=== PATIENT | male | born 1950 | race Caucasian/White ===

== ENCOUNTER 2022-04-18 09:59 | Emergency (ER) | payer MEDICARE, MEDICAID ==
[~2022-04-18] VITALS: Ht 175.3 cm; Wt 66.2 kg
[~2022-04-18 09:59] MED LIST: ASPIRIN CHEWABL81 MG PO; ATORVASTATIN CA10 MG PO; CATAPRES0.2 MG PO; LISINOPRIL10 MG PO; LOPRESSOR 550 MG/TAB PO; RESTORIL15 MG PO; TERAZOSIN2 MG PO; XANAX0.5 MG PO; catapres PO
[2022-04-18 10:13] VITALS: BP 117/65
[2022-04-18 10:15] VITALS: BP 119/76
[2022-04-18 10:30] VITALS: BP 110/63
[2022-04-18] MEDS ORDERED: CLINDAMYCIN HY300 MG PO (10:31)
[2022-04-18 10:43] VITALS: BP 110/63
== END 2022-04-18 10:40 | disposition home or self-care (01) ==
LOC: ED 09:59
DX: K08.89 Other specified disorders of teeth and supporting structures (principal); I10 Essential (primary) hypertension

== ENCOUNTER 2024-10-12 18:00 | Inpatient (IN) | payer MEDICARE ==
[~2024-10-12] VITALS: Ht 175.3 cm; Wt 62.8 kg
[2024-10-12] VITALS (19 sets, daily range): BP systolic 136–239; BP diastolic 73–131
[~2024-10-12 18:00] MED LIST changes: +CLINDAMYCIN HY300 MG PO
[2024-10-12 19:09] LABS: BASO% 0.5 % (0-3); EOS% 0.4 % (0-8); HEMATOCRIT 34.8 % (39.0-50.0); HEMOGLOBIN 11.7 g/dl (14.0-18.0); IMMATURE GRANULOCYTES 0.3 % (0.0-5.0); LYMPH% 6.3 % (15-41); MEAN CELL VOLUME 95.9 fL CALC (80.0-100.0); MEAN CORPUSCULAR HGB 32.2 pG CALC (26.0-32.0); MEAN CORPUSCULAR HGB CONC 33.6 g/dL CAL (32.0-36.0); MONO% 5.8 % (2-13); NEUT# 11.44 thou/uL (1.82-7.42); NEUT% 86.7 % (42-76); RED BLOOD COUNT 3.63 mill/uL (4.70-6.10)
[2024-10-12] MEDS ORDERED: SODIUM CHLORIDE 0.9% 1,000 ML IV ONE ×3 (19:15→21:55)
[2024-10-12] MEDS ORDERED: hydrALAZINE HCL 20 MG/ML VIAL(1 ML) IV ONE (19:15)
[2024-10-12 19:20] LABS: ALBUMIN 4.3 g/dL (3.2-5.0); BILIRUBIN, TOTAL 0.8 mg/dL (0.2-1.3); TOTAL PROTEIN 7.2 g/dL (6.3-8.2)
[2024-10-12 20:21] LABS: URINE BILIRUBIN - DIPSTICK Negative (NEGATIVE); URINE BLOOD DIPSTICK Trace-intact (NEGATIVE); URINE GLUCOSE - DIPSTICK Negative (NEGATIVE); URINE KETONE Negative (NEGATIVE); URINE NITRITE - DIPSTICK Negative (Negative); URINE PH 5.5 (4.5-8.0); URINE PROTEIN - DIPSTICK 30 mg/dL (NEG-TRACE); URINE SPECIFIC GRAVITY <=1.005; URINE UROBILINOGEN - DIPSTICK 0.2 E.U./dL (0.2)
[2024-10-12 20:23] LABS: URINE COLOR Light yellow; URINE LEUK ESTERASE Large (NEGATIVE)
[2024-10-12] MEDS ORDERED: diazePAM 10 MG/2 ML VIAL IV ONE ×2 (20:25→20:55)
[2024-10-12 20:27] LABS: URINE RBC 0-2 RBC/hpf (0-5)
[2024-10-12 20:28] LABS: URINE SQUAMOUS EPITHELIAL CELL FEW EPI/hpf (0-FEW)
[2024-10-12] MEDS ORDERED: MAGNESIUM HYDROXIDE 30 ML UDC PO PRN (21:55)
[2024-10-12] MEDS ORDERED: hydrALAZINE HCL 20 MG/ML VIAL(1 ML) IV PRN (21:55)
[2024-10-12] MEDS ORDERED: cefTRIAXone SODIUM 2 GM in SODIUM CHLORIDE 0.9% 100 ML IV ONE (21:55)
[2024-10-12] MEDS ORDERED: AZITHROMYCIN 500 MG in SODIUM CHLORIDE 0.9% 500 ML IV ONE (21:55)
[2024-10-12] MEDS ORDERED: SODIUM CHLORIDE 0.9% 1,000 ML IV PRN (21:55)
[2024-10-12] MEDS ORDERED: ACETAMINOPHEN 325 MG/TAB PO PRN (21:55)
[2024-10-12] MEDS ORDERED: MIDAZOLAM HCL 2 MG/2 ML VIAL IV PRN (21:55)
[2024-10-12] MEDS ORDERED: METOPROLOL TARTRATE 50 MG/TAB PO SCH (21:57)
[2024-10-12] MEDS ORDERED: LISINOPRIL 10 MG/TAB PO SCH (21:57)
[2024-10-12] MEDS ORDERED: Heparin SODIUM (Porcine) 5,000 UNITS/ML SDV SC SCH (22:00)
[2024-10-12] MEDS ORDERED: IPRATROPIUM-Albuterol 0.5MG-2.5MG/3 ML NEB PRN (22:00)
[2024-10-12] MEDS ORDERED: cloNIDine HCL 0.1 MG/TAB PO ONE (22:20)
[2024-10-12] MEDS ORDERED: LABETALOL HCL 20 MG/ 4 ML CARTRG IV ONE (22:40)
[2024-10-13] VITALS (7 sets, daily range): BP systolic 140–204; BP diastolic 71–97
[2024-10-13 05:41] LABS: BASO% 0.4 % (0-3); EOS% 0.4 % (0-8); HEMATOCRIT 34.8 % (39.0-50.0); IMMATURE GRANULOCYTES 0.2 % (0.0-5.0); LYMPH% 10.6 % (15-41); MEAN CELL VOLUME 96.4 fL CALC (80.0-100.0); MEAN CORPUSCULAR HGB 33.2 pG CALC (26.0-32.0); MEAN CORPUSCULAR HGB CONC 34.5 g/dL CAL (32.0-36.0); MONO% 8.4 % (2-13); NEUT# 10.23 thou/uL (1.82-7.42); RED BLOOD COUNT 3.61 mill/uL (4.70-6.10)
[2024-10-13 05:50] LABS: ALBUMIN 3.8 g/dL (3.2-5.0); BILIRUBIN, TOTAL 0.8 mg/dL (0.2-1.3); CREATININE 4.6 mg/dL (0.7-1.3); MAGNESIUM 1.8 mg/dL (1.6-2.3); POTASSIUM 4.6 mmol/l (3.5-5.1); TOTAL PROTEIN 6.7 g/dL (6.3-8.2)
[2024-10-13] MEDS ORDERED: LABETALOL HCL 20 MG/ 4 ML CARTRG IV PRN (07:30)
[2024-10-13] MEDS ORDERED: LOPRESSOR50 M1 PO (10:09)
[2024-10-13] MEDS ORDERED: ZESTRIL40 MG PO (10:10)
[2024-10-13] MEDS ORDERED: ATORVASTATIN CA10 MG PO (10:11)
[2024-10-13] MEDS ORDERED: TERAZOSIN5 MG PO (10:11)
[2024-10-13] MEDS ORDERED: MELOXICAM7.5 MG PO (10:12)
[2024-10-13] MEDS ORDERED: GABAPENTIN300 M3 PO (10:13)
[2024-10-13] MEDS ORDERED: amLODIPine BESYLATE 5 MG/TAB PO SCH (11:00)
[2024-10-13] MEDS ORDERED: QUEtiapine FUMERATE 25 MG/TAB PO SCH (11:00)
[2024-10-13] MEDS ORDERED: AZITHROMYCIN 500 MG in SODIUM CHLORIDE 0.9% 250 ML IV SCH (23:00)
[2024-10-14 02:14] VITALS: BP 168/82
[2024-10-14 05:56] VITALS: BP 151/88
[2024-10-14 07:11] VITALS: BP 133/69
[2024-10-14 09:03] LABS: ALBUMIN 3.8 g/dL (3.2-5.0); BILIRUBIN, TOTAL 0.9 mg/dL (0.2-1.3); MAGNESIUM 1.6 mg/dL (1.6-2.3); POTASSIUM 3.9 mmol/l (3.5-5.1); TOTAL PROTEIN 6.7 g/dL (6.3-8.2)
[2024-10-14 09:42] LABS: BASO% 0.4 % (0-3); EOS% 0.8 % (0-8); HEMATOCRIT 36.8 % (39.0-50.0); HEMOGLOBIN 12.4 g/dl (14.0-18.0); IMMATURE GRANULOCYTES 0.2 % (0.0-5.0); LYMPH% 13.6 % (15-41); MEAN CELL VOLUME 97.1 fL CALC (80.0-100.0); MEAN CORPUSCULAR HGB 32.7 pG CALC (26.0-32.0); MEAN CORPUSCULAR HGB CONC 33.7 g/dL CAL (32.0-36.0); MONO% 9.1 % (2-13); NEUT# 10.42 thou/uL (1.82-7.42); NEUT% 75.9 % (42-76); RED BLOOD COUNT 3.79 mill/uL (4.70-6.10)
[2024-10-14 09:58] LABS: CREATININE 3.3 mg/dL (0.7-1.3)
[2024-10-14 18:37] VITALS: BP 149/92
[2024-10-15 01:25] VITALS: BP 144/97
[2024-10-15 04:50] VITALS: BP 147/74
[2024-10-15 07:01] LABS: HEMATOCRIT 33.8 % (39.0-50.0); HEMOGLOBIN 11.3 g/dl (14.0-18.0); MEAN CORPUSCULAR HGB 32.8 pG CALC (26.0-32.0); MEAN CORPUSCULAR HGB CONC 33.4 g/dL CAL (32.0-36.0); RED BLOOD COUNT 3.45 mill/uL (4.70-6.10); RED CELL DISTRI WIDTH 13.1 % (11.5-15.5)
[2024-10-15 07:13] VITALS: BP 138/77
[2024-10-15 07:15] LABS: ALBUMIN 3.5 g/dL (3.2-5.0); BILIRUBIN, TOTAL 0.9 mg/dL (0.2-1.3); CREATININE 2.8 mg/dL (0.7-1.3); POTASSIUM 3.6 mmol/l (3.5-5.1); TOTAL PROTEIN 6.4 g/dL (6.3-8.2)
[2024-10-15] MEDS ORDERED: DOXYCYCLINE HYCLATE 100 MG in SODIUM CHLORIDE 0.9% 100 ML IV SCH (16:00)
[2024-10-15 16:16] VITALS: BP 175/84
[2024-10-15 19:55] VITALS: BP 139/70
[2024-10-15] MEDS ORDERED: QUEtiapine FUMERATE 25 MG/TAB PO SCH (21:00)
[2024-10-16 03:45] VITALS: BP 147/75
[2024-10-16 05:43] LABS: HEMATOCRIT 34.8 % (39.0-50.0); HEMOGLOBIN 11.7 g/dl (14.0-18.0); MEAN CORPUSCULAR HGB CONC 33.6 g/dL CAL (32.0-36.0); RED BLOOD COUNT 3.55 mill/uL (4.70-6.10); RED CELL DISTRI WIDTH 12.9 % (11.5-15.5)
[2024-10-16 05:50] LABS: ALBUMIN 3.6 g/dL (3.2-5.0); CREATININE 2.4 mg/dL (0.7-1.3); POTASSIUM 4.2 mmol/l (3.5-5.1); TOTAL PROTEIN 6.7 g/dL (6.3-8.2)
[2024-10-16 05:56] LABS: BILIRUBIN, TOTAL 0.5 mg/dL (0.2-1.3)
[2024-10-16] MEDS ORDERED: TAMSULOSIN HCL 0.4 MG CAP PO SCH (09:00)
[2024-10-16] MEDS ORDERED: QUEtiapine FUMERATE 25 MG/TAB PO SCH (10:00)
[2024-10-16 10:45] VITALS: BP 134/80
[2024-10-16] MEDS ORDERED: MIDAZOLAM HCL 2 MG/2 ML VIAL IV PRN (14:10)
[2024-10-16 15:53] VITALS: BP 135/75
[2024-10-16 19:00] VITALS: BP 139/73
[2024-10-16] MEDS ORDERED: QUEtiapine FUMERATE 100 MG/TAB PO SCH (21:00)
[2024-10-16 21:41] VITALS: BP 192/70
[2024-10-16 23:10] VITALS: BP 117/61
[2024-10-17 05:50] VITALS: BP 92/62
[2024-10-17 14:26] LABS: BASO% 0.5 % (0-3); EOS% 4.5 % (0-8); HEMATOCRIT 32.9 % (39.0-50.0); IMMATURE GRANULOCYTES 0.1 % (0.0-5.0); LYMPH% 15.1 % (15-41); MEAN CELL VOLUME 97.3 fL CALC (80.0-100.0); MEAN CORPUSCULAR HGB 32.5 pG CALC (26.0-32.0); MEAN CORPUSCULAR HGB CONC 33.4 g/dL CAL (32.0-36.0); MONO% 7.4 % (2-13); NEUT# 7.23 thou/uL (1.82-7.42); NEUT% 72.4 % (42-76); RED BLOOD COUNT 3.38 mill/uL (4.70-6.10); RED CELL DISTRI WIDTH 12.8 % (11.5-15.5)
[2024-10-17 14:36] LABS: ALBUMIN 3.1 g/dL (3.2-5.0); BILIRUBIN, TOTAL 0.6 mg/dL (0.2-1.3); CREATININE 1.9 mg/dL (0.7-1.3); MAGNESIUM 1.5 mg/dL (1.6-2.3); POTASSIUM 3.8 mmol/l (3.5-5.1); TOTAL PROTEIN 5.8 g/dL (6.3-8.2)
[2024-10-17 15:33] VITALS: BP 128/69
[2024-10-17 18:40] VITALS: BP 164/52
[2024-10-17 21:09] VITALS: BP 107/65
[2024-10-18 04:06] VITALS: BP 163/67
[2024-10-18 07:01] VITALS: BP 186/75
[2024-10-18] MEDS ORDERED: LORazepam 0.5 MG/TAB PO PRN (14:35)
[2024-10-18] MEDS ORDERED: MIDAZOLAM HCL 2 MG/2 ML VIAL IV PRN (15:15)
[2024-10-18 17:14] VITALS: BP 154/70
[2024-10-18 19:35] VITALS: BP 160/74
[2024-10-19 04:50] VITALS: BP 179/81
[2024-10-19 06:03] LABS: ALBUMIN 3.7 g/dL (3.2-5.0); BILIRUBIN, TOTAL 0.7 mg/dL (0.2-1.3); MAGNESIUM 1.6 mg/dL (1.6-2.3); TOTAL PROTEIN 6.7 g/dL (6.3-8.2)
[2024-10-19 06:08] VITALS: BP 168/75
[2024-10-19 06:11] LABS: POTASSIUM 4.7 mmol/l (3.5-5.1)
[2024-10-19 06:24] LABS: BASO% 0.4 % (0-3); EOS% 3.6 % (0-8); HEMATOCRIT 33.3 % (39.0-50.0); HEMOGLOBIN 11.1 g/dl (14.0-18.0); IMMATURE GRANULOCYTES 0.2 % (0.0-5.0); LYMPH% 14.6 % (15-41); MEAN CELL VOLUME 97.1 fL CALC (80.0-100.0); MEAN CORPUSCULAR HGB 32.4 pG CALC (26.0-32.0); MEAN CORPUSCULAR HGB CONC 33.3 g/dL CAL (32.0-36.0); MONO% 7.4 % (2-13); NEUT# 8.73 thou/uL (1.82-7.42); NEUT% 73.8 % (42-76); RED BLOOD COUNT 3.43 mill/uL (4.70-6.10); RED CELL DISTRI WIDTH 12.9 % (11.5-15.5)
[2024-10-19] MEDS ORDERED: DOXYCYCLINE HYCLATE 100 MG in SODIUM CHLORIDE 0.9% 100 ML IV SCH (08:00)
[2024-10-19 08:39] VITALS: BP 168/75
[2024-10-19] MEDS ORDERED: TAMSULOSIN0.4 MG PO (09:53)
[2024-10-19] MEDS ORDERED: AMLODIPINE BESYL5 MG PO (09:53)
[2024-10-19] MEDS ORDERED: QUETIAPINE FUM100 MG PO (09:54)
[2024-10-19] MEDS ORDERED: XANAX0.25 MG PO (09:54)
[2024-10-19] MEDS ORDERED: ALPRAZolam 0.25 MG PO PRN (10:40)
== END 2024-10-19 14:01 | DRG 194 ==
LOC: ED 18:00 → ED-I 21:40 → MS2 21:57 → ED 21:57 → MS2 10-13 09:11
PROVIDERS: Nurse Practitioner; Nurse Practitioner Family; ADMIT Internal Medicine; ATTEND Internal Medicine
PROC: 0T9B70Z Drainage of Bladder with Drainage Device, Via Natural or Artificial Opening (ICD-10-PCS; principal; 2024-10-12)
DX: J18.9 Pneumonia, unspecified organism (principal); F03.911 Unspecified dementia, unspecified severity, with agitation; N17.9 Acute kidney failure, unspecified; N13.6 Pyonephrosis; N13.8 Other obstructive and reflux uropathy; E86.0 Dehydration; I12.9 Hypertensive chronic kidney disease with stage 1 through stage 4 chronic kidney disease, or unspecified chronic kidney disease; N18.9 Chronic kidney disease, unspecified; N40.1 Benign prostatic hyperplasia with lower urinary tract symptoms; R33.8 Other retention of urine; R31.9 Hematuria, unspecified; Z91.81 History of falling; Z86.73 Personal history of transient ischemic attack (TIA), and cerebral infarction without residual deficits; Z91.190 Patient's noncompliance with other medical treatment and regimen due to financial hardship; Z78.1 Physical restraint status
CPT/HCPCS: G0378; J0360; J0456; J0696; J1644; J2359; J3360

== ENCOUNTER 2024-10-21 09:15 | Observation (INO) | payer MEDICARE ==
[2024-10-21] VITALS (18 sets, daily range): BP systolic 93–140; BP diastolic 46–72
[~2024-10-21] VITALS: Ht 175.3 cm; Wt 58.3 kg
[~2024-10-21 09:15] MED LIST changes: +AMLODIPINE BESYL5 MG PO; +GABAPENTIN300 M3 PO; +LOPRESSOR50 M1 PO; +MELOXICAM7.5 MG PO; +QUETIAPINE FUM100 MG PO; +TAMSULOSIN0.4 MG PO; +TERAZOSIN5 MG PO; +XANAX0.25 MG PO; +ZESTRIL40 MG PO
[2024-10-21] MEDS ORDERED: DEPAKOTE125 MG PO (09:32)
[2024-10-21] MEDS ORDERED: MELATONIN5 MG PO (09:34)
[2024-10-21] MEDS ORDERED: TAMSULOSIN0.4 MG PO (09:36)
[2024-10-21 09:57] LABS: URINE BILIRUBIN - DIPSTICK Negative (NEGATIVE); URINE BLOOD DIPSTICK Trace-intact (NEGATIVE); URINE GLUCOSE - DIPSTICK Negative (NEGATIVE); URINE KETONE Negative (NEGATIVE); URINE LEUK ESTERASE Trace (NEGATIVE); URINE NITRITE - DIPSTICK Negative (Negative); URINE PH 5.5 (4.5-8.0); URINE PROTEIN - DIPSTICK 30 mg/dL (NEG-TRACE); URINE SPECIFIC GRAVITY 1.015; URINE UROBILINOGEN - DIPSTICK 0.2 E.U./dL (0.2)
[2024-10-21 10:01] LABS: BASO% 0.6 % (0-3); EOS% 3.4 % (0-8); HEMATOCRIT 33.1 % (39.0-50.0); IMMATURE GRANULOCYTES 0.3 % (0.0-5.0); LYMPH% 13.7 % (15-41); MEAN CELL VOLUME 98.5 fL CALC (80.0-100.0); MEAN CORPUSCULAR HGB 32.7 pG CALC (26.0-32.0); MEAN CORPUSCULAR HGB CONC 33.2 g/dL CAL (32.0-36.0); MONO% 7.5 % (2-13); NEUT# 8.73 thou/uL (1.82-7.42); NEUT% 74.5 % (42-76); RED BLOOD COUNT 3.36 mill/uL (4.70-6.10); RED CELL DISTRI WIDTH 13.1 % (11.5-15.5)
[2024-10-21 10:16] LABS: URINE COLOR Yellow
[2024-10-21 10:17] LABS: ALBUMIN 3.2 g/dL (3.2-5.0); BILIRUBIN, TOTAL 0.6 mg/dL (0.2-1.3); CREATININE 1.8 mg/dL (0.7-1.3); POTASSIUM 4.3 mmol/l (3.5-5.1); TOTAL PROTEIN 6.1 g/dL (6.3-8.2)
[2024-10-21 10:29] LABS: URINE HYALINE CAST RARE lpf (NONE-RARE); URINE MUCUS RARE hpf (NONE-FEW)
[2024-10-21 10:48] LABS: TSH, 3RD GENERATION 0.55 uIU/mL (0.47 - 4.68)
[2024-10-21] MEDS ORDERED: SODIUM CHLORIDE 0.9% 1,000 ML IV PRN (12:50)
[2024-10-21] MEDS ORDERED: MELATONIN 3 MG/TAB PO PRN (12:50)
[2024-10-21] MEDS ORDERED: Polyethylene Glycol 3350 17 GM/PKT PO PRN (12:50)
[2024-10-21] MEDS ORDERED: ACETAMINOPHEN 325 MG/TAB PO PRN (12:50)
[2024-10-21] MEDS ORDERED: ONDANSETRON 4 MG/TAB ODT SL PRN (12:50)
[2024-10-21] MEDS ORDERED: ALPRAZolam 0.25 MG PO PRN ×2 (12:55→17:30)
[2024-10-21] MEDS ORDERED: QUEtiapine FUMERATE 25 MG/TAB PO PRN (12:55)
[2024-10-21] MEDS ORDERED: ENOXAPARIN SODIUM 30 MG/0.3 ML INJ SC SCH (21:00)
[2024-10-21] MEDS ORDERED: ATORVASTATIN CALCIUM 10 MG/TAB PO SCH (21:00)
[2024-10-22] VITALS (9 sets, daily range): BP systolic 141–163; BP diastolic 53–73
[2024-10-22 05:07] LABS: BASO% 0.7 % (0-3); EOS% 3.2 % (0-8); HEMATOCRIT 31.2 % (39.0-50.0); HEMOGLOBIN 10.4 g/dl (14.0-18.0); IMMATURE GRANULOCYTES 0.3 % (0.0-5.0); LYMPH% 18.7 % (15-41); MEAN CELL VOLUME 96.9 fL CALC (80.0-100.0); MEAN CORPUSCULAR HGB 32.3 pG CALC (26.0-32.0); MEAN CORPUSCULAR HGB CONC 33.3 g/dL CAL (32.0-36.0); MONO% 7.8 % (2-13); NEUT# 8.5 thou/uL (1.82-7.42); NEUT% 69.3 % (42-76); RED BLOOD COUNT 3.22 mill/uL (4.70-6.10); RED CELL DISTRI WIDTH 13.1 % (11.5-15.5)
[2024-10-22 05:25] LABS: BILIRUBIN, TOTAL 0.4 mg/dL (0.2-1.3); CREATININE 1.6 mg/dL (0.7-1.3); MAGNESIUM 1.5 mg/dL (1.6-2.3); POTASSIUM 4.1 mmol/l (3.5-5.1); TOTAL PROTEIN 5.8 g/dL (6.3-8.2)
[2024-10-22] MEDS ORDERED: TERAZOSIN HCL PO SCH (09:00)
[2024-10-22] MEDS ORDERED: CEFEPIME HYDROCHLORIDE 1 GM in SODIUM CHLORIDE 0.9% 50 ML IV SCH (10:30)
[2024-10-22] MEDS ORDERED: VANCOMYCIN HCL 750 MG in SODIUM CHLORIDE 0.9% 235 ML IV SCH (11:00)
[2024-10-22] MEDS ORDERED: PANTOPRAZOLE SODIUM Sesquihydr 40 MG/TAB PO SCH (13:30)
[2024-10-22] MEDS ORDERED: TAMSULOSIN HCL 0.4 MG CAP PO SCH (14:30)
[2024-10-23] VITALS (7 sets, daily range): BP systolic 136–165; BP diastolic 55–77
[2024-10-23 05:27] LABS: ALBUMIN 3.4 g/dL (3.2-5.0); CREATININE 1.7 mg/dL (0.7-1.3); MAGNESIUM 1.6 mg/dL (1.6-2.3); POTASSIUM 4.2 mmol/l (3.5-5.1); TOTAL PROTEIN 6.4 g/dL (6.3-8.2)
[2024-10-23 05:40] LABS: BILIRUBIN, TOTAL 0.6 mg/dL (0.2-1.3)
[2024-10-23 05:41] LABS: BASO% 0.6 % (0-3); EOS% 2.6 % (0-8); HEMATOCRIT 34.1 % (39.0-50.0); HEMOGLOBIN 11.4 g/dl (14.0-18.0); IMMATURE GRANULOCYTES 0.2 % (0.0-5.0); LYMPH% 21.2 % (15-41); MEAN CELL VOLUME 97.4 fL CALC (80.0-100.0); MEAN CORPUSCULAR HGB 32.6 pG CALC (26.0-32.0); MEAN CORPUSCULAR HGB CONC 33.4 g/dL CAL (32.0-36.0); MONO% 9.2 % (2-13); NEUT# 7.99 thou/uL (1.82-7.42); NEUT% 66.2 % (42-76); RED BLOOD COUNT 3.5 mill/uL (4.70-6.10)
[2024-10-23] MEDS ORDERED: QUEtiapine FUMERATE 25 MG/TAB PO SCH (12:30)
[2024-10-24] VITALS (7 sets, daily range): BP systolic 127–154; BP diastolic 55–77
[2024-10-24 08:40] LABS: BASO% 0.7 % (0-3); EOS% 3.1 % (0-8); HEMATOCRIT 34.1 % (39.0-50.0); HEMOGLOBIN 11.3 g/dl (14.0-18.0); IMMATURE GRANULOCYTES 0.4 % (0.0-5.0); LYMPH% 20.1 % (15-41); MEAN CELL VOLUME 96.6 fL CALC (80.0-100.0); MEAN CORPUSCULAR HGB CONC 33.1 g/dL CAL (32.0-36.0); NEUT# 6.79 thou/uL (1.82-7.42); NEUT% 68.7 % (42-76); RED BLOOD COUNT 3.53 mill/uL (4.70-6.10); RED CELL DISTRI WIDTH 12.9 % (11.5-15.5)
[2024-10-24 09:06] LABS: ALBUMIN 3.6 g/dL (3.2-5.0); BILIRUBIN, TOTAL 0.7 mg/dL (0.2-1.3); CREATININE 1.8 mg/dL (0.7-1.3); POTASSIUM 4.8 mmol/l (3.5-5.1); TOTAL PROTEIN 6.5 g/dL (6.3-8.2)
[2024-10-24] MEDS ORDERED: VANCOMYCIN HCL 750 MG in SODIUM CHLORIDE 0.9% 235 ML IV SCH (17:30)
[2024-10-25 03:52] VITALS: BP 121/60
[2024-10-25 07:25] VITALS: BP 147/77
[2024-10-25] MEDS ORDERED: ATORVASTATIN CA10 MG PO (09:41)
[2024-10-25] MEDS ORDERED: TAMSULOSIN0.4 MG PO (09:41)
[2024-10-25] MEDS ORDERED: AMLODIPINE BESYL5 MG PO (09:42)
[2024-10-25] MEDS ORDERED: QUETIAPINE FUMA25 MG PO (09:44)
[2024-10-25] MEDS ORDERED: amLODIPine BESYLATE 5 MG/TAB PO SCH (10:00)
[2024-10-25 10:13] VITALS: BP 127/69
[2024-10-25 11:21] VITALS: BP 106/60
== END 2024-10-25 11:59 ==
LOC: ED 09:15 → ED-I 12:00 → ED 12:28 → MS2 12:29
PROVIDERS: Family Medicine; Nurse Practitioner Family; ADMIT Internal Medicine; ATTEND Internal Medicine
DX: G92.8 Other toxic encephalopathy (principal); T43.595A Adverse effect of other antipsychotics and neuroleptics, initial encounter; T42.6X5A Adverse effect of other antiepileptic and sedative-hypnotic drugs, initial encounter; T42.4X5A Adverse effect of benzodiazepines, initial encounter; F03.911 Unspecified dementia, unspecified severity, with agitation; I12.9 Hypertensive chronic kidney disease with stage 1 through stage 4 chronic kidney disease, or unspecified chronic kidney disease; N18.9 Chronic kidney disease, unspecified; N40.1 Benign prostatic hyperplasia with lower urinary tract symptoms; R33.8 Other retention of urine; N13.8 Other obstructive and reflux uropathy; Z96.0 Presence of urogenital implants; Z86.73 Personal history of transient ischemic attack (TIA), and cerebral infarction without residual deficits; Z91.81 History of falling; Z20.822 Contact with and (suspected) exposure to COVID-19
CPT/HCPCS: J0692; J1650; J3370